=== PATIENT | male | born 1950 | race Caucasian/White ===

== ENCOUNTER 2022-01-18 08:38 | Emergency (ER) | payer MEDICARE, OTHER ==
[2022-01-18] MEDS ORDERED: Dextrose 5%-0.9% NaCl 1,000 ML IV SCH (09:00)
[2022-01-18] MEDS ORDERED: Aspirin 81 MG Tab.Chew PO ONE (09:01)
[2022-01-18] MEDS ORDERED: Metoclopramide 10 MG/2 ML SDV IVPUSH ONE (09:01)
[2022-01-18] MEDS ORDERED: Aluminum Hydroxide/Magnesium Hydroxide/Simethicone Susp 30 ML Cup PO ONE (09:05)
[2022-01-18] MEDS ORDERED: Nitroglycerin/D5W 25 MG/250 ML BOTTLE IV SCH (09:15)
[2022-01-18 09:55] LABS: ESTIMATED GFR 94 mL/min (>60)
[2022-01-18] MEDS ORDERED: Famotidine 20 MG Tab PO ONE (10:43)
== END 2022-01-18 10:57 | disposition home or self-care (01) ==
LOC: JD.ED 08:38
DX: K22.4 Dyskinesia of esophagus (principal); F17.210 Nicotine dependence, cigarettes, uncomplicated
CPT/HCPCS: 36415; 71045; 80053; 82553; 83735; 83880; 84484; 85025; 85379; 85610; 85730; 86140; 93005; 96365; 96366; 96375; 99285; A9270; J2765; J3490; J7042; 93010; 99283